=== PATIENT | male | born 1960 | race Hispanic/Latino ===

== ENCOUNTER 2020-09-16 06:30 | Inpatient (IN) | payer MEDICARE ==
[2020-09-11 08:50] LABS: BASOPHILS % (AUTO) 0.8 % (0.0-5.0); EOSINOPHILS % (AUTO) 2.7 % (0.0-8.0); LYMPHOCYTES % (AUTO) 27.1 % (21.0-51.0); MEAN CORPUSCULAR HEMOGLOBIN 33.6 pg (27.0-33.0); MEAN CORPUSCULAR HGB CONC 33.8 g/dL (32.0-36.0); MEAN CORPUSCULAR VOLUME 99.3 fL (79-99); MONOCYTES % (AUTO) 7.8 % (3.0-13.0); NEUTROPHILS % (AUTO) 61.4 % (40.0-77.0); PLATELET COUNT (AUTO) 207 K/uL (130-400); RED BLOOD CELL COUNT(AUTO) 4.53 MIL/uL (4.50-6.20); RED CELL DISTRIBUTION WIDTH 12.6 % (11.0-15.5); WHITE BLOOD COUNT (AUTO) 9.3 K/uL (4.8-10.8)
[2020-09-11 09:07] LABS: CREATININE 1.1 mg/dL (0.5-1.5); POTASSIUM 4.1 mmol/L (3.5-5.1)
[2020-09-11 09:08] LABS: INR 1.01 (0.85-1.15); PROTHROMBIN TIME 10.8 SEC (9.6-11.6)
[2020-09-11 09:09] LABS: PARTIAL THROMBOPLASTIN TIME 28.2 SEC (26.3-35.5)
[2020-09-12 10:57] VITALS: BP 119/70
[2020-09-16] VITALS (21 sets, daily range): BP systolic 92–119; BP diastolic 51–71
[~2020-09-16] VITALS: Ht 167.6 cm; Wt 70.5 kg
[2020-09-16] MEDS ORDERED: BUPIVACAINE/PF 0.25% 30ML VIAL IJ ONE (08:02)
[2020-09-16] MEDS ORDERED: MORPHINE PF 100MG/10ML AMP IV ONE (08:02)
[2020-09-16] MEDS ORDERED: VANCOMYCIN 1G VIAL ONE (08:02)
[2020-09-16] MEDS ORDERED: BUPIVACAINE/PF 0.25% 50ML VIAL IJ ONE (08:02)
[2020-09-16] MEDS ORDERED: TRANEXAMIC ACID 1000MG/10ML ONE (08:02)
[2020-09-16] MEDS ORDERED: THROMBIN-JMI 20000 UNIT KIT TP ONE (08:03)
[2020-09-16] MEDS ORDERED: 0.9%NACL 1000ML 1,000 ML IV ONE (08:19)
[2020-09-16] MEDS ORDERED: KETAMINE 50MG/ML SYRINGE 50 MG/ML DISP.SYRIN IV ONE (08:36)
[2020-09-16] MEDS ORDERED: LIDOCAINE PF 100MG/5ML (2%) SYRINGE 5ML ONE (08:36)
[2020-09-16] MEDS ORDERED: SUCCINYLCHOLINE CHLORIDE 20 MG/ML 10 ML VIAL ONE (08:36)
[2020-09-16] MEDS ORDERED: PROPOFOL 10 MG/ML 20ML VIAL IV ONE (08:36)
[2020-09-16] MEDS ORDERED: MIDAZOLAM HCL 1 MG/ML 2ML VIAL ONE (08:38)
[2020-09-16] MEDS ORDERED: CALDOLOR 800MG+NS 250ML 250 ML IV ONE (09:08)
[2020-09-16] MEDS ORDERED: CEFAZOLIN SODIUM 1 GM VIAL ONE ×2 (09:28→09:29)
[2020-09-16] MEDS ORDERED: TOBRAMYCIN SULFATE 40MG/1ML VIAL ONE (09:31)
[2020-09-16] MEDS ORDERED: GLYCOPYRROLATE 1 MG/5 ML SYRINGE ONE (09:37)
[2020-09-16] MEDS ORDERED: ARTIFICIAL TEARS 3.5 GM OINTMENT ONE (09:45)
[2020-09-16] MEDS ORDERED: ESMOLOL HCL 10 MG/ML 10 ML VIAL ONE (09:46)
[2020-09-16] MEDS ORDERED: ROCURONIUM 10MG/1ML SYR 10 MG/ML ML ONE (09:46)
[2020-09-16] MEDS ORDERED: NEOSTIGMINE 5MG/5ML SYR IV ONE (09:46)
[2020-09-16] MEDS ORDERED: KETOROLAC 30MG VIAL (30MG/ML) ONE (10:16)
[2020-09-16] MEDS ORDERED: FENTANYL CITRATE PF 50 MCG/1 ML 2ML VIAL ONE (10:28)
[2020-09-16] MEDS ORDERED: EPHEDRINE SULFATE 50 MG/ML AMPULE ONE (10:40)
[2020-09-16] MEDS ORDERED: ONDANSETRON 4MG INJ ONE (10:51)
[2020-09-16] MEDS ORDERED: ORPHENADRINE CITRATE 30 MG/ML ML IM SCH (11:00)
[2020-09-16] MEDS ORDERED: ACETAMINOPHEN WITH CODEINE 1 TAB TAB ONE (12:42)
[2020-09-16] MEDS ORDERED: IPRA4AER IH (13:25)
[2020-09-16] MEDS ORDERED: OMEP40CA21 PO (13:25)
[2020-09-16] MEDS ORDERED: TAMS-1 PO (13:25)
[2020-09-16] MEDS ORDERED: ZOLP10TA2 PO (13:25)
[2020-09-16] MEDS ORDERED: DULO60CA64 PO (13:25)
[2020-09-16] MEDS ORDERED: ATOR40TA69 PO (13:25)
[2020-09-16] MEDS ORDERED: PALI3TAB PO (13:25)
[2020-09-16] MEDS ORDERED: LISI2.5T13 PO (13:25)
[2020-09-16] MEDS ORDERED: TRAZ150T79 PO (13:25)
[2020-09-16] MEDS ORDERED: CLON2TAB11 PO (13:25)
[2020-09-16] MEDS ORDERED: METF-444 PO (13:25)
[2020-09-16] MEDS ORDERED: MIRA25TA PO (13:25)
== END 2020-09-16 14:45 | disposition home or self-care (01) | DRG 460 ==
LOC: DAHIP 06:30 → EDSTATUS 12:46
PROVIDERS: ADMIT Neurological Surgery; ATTEND Neurological Surgery
PROC: 4A11X4G Monitoring of Peripheral Nervous Electrical Activity, Intraoperative, External Approach (ICD-10-PCS; 2020-09-16)
PROC: 0SG80JZ Fusion of Left Sacroiliac Joint with Synthetic Substitute, Open Approach (ICD-10-PCS; principal; 2020-09-16 09:27)
DX: M96.1 Postlaminectomy syndrome, not elsewhere classified (principal); M46.1 Sacroiliitis, not elsewhere classified; E78.00 Pure hypercholesterolemia, unspecified; G89.4 Chronic pain syndrome; E11.9 Type 2 diabetes mellitus without complications; Z87.891 Personal history of nicotine dependence; Z98.1 Arthrodesis status; Z90.49 Acquired absence of other specified parts of digestive tract; Z80.9 Family history of malignant neoplasm, unspecified; Z83.3 Family history of diabetes mellitus; Z82.49 Family history of ischemic heart disease and other diseases of the circulatory system; Z20.822 Contact with and (suspected) exposure to COVID-19
CPT/HCPCS: 36415; 71045; 72202; 80048; 82948; 85025; 85610; 85730; 93005; G0378; J0330; J0690; J1040; J1741; J1885; J2001; J2250; J2274; J2405; J2704; J2710; J3010; J3260; J3370; J3490; J7030; U0003

== ENCOUNTER → 2023-03-29 | Outpatient (CLI) | payer OTHER ==
[~2023-03-29] MED LIST: ATOR40TA69 PO; CLON2TAB11 PO; DULO60CA64 PO; IPRA4AER IH; LISI2.5T13 PO; METF-444 PO; MIRA25TA PO; OMEP40CA21 PO; PALI3TAB PO; TAMS-1 PO; TRAZ150T79 PO; ZOLP10TA2 PO
== END | disposition home or self-care (01) ==
LOC: SHCH 12:14
PROVIDERS: ATTEND Internal Medicine Cardiovascular Disease
DX: I07.1 Rheumatic tricuspid insufficiency (principal)
CPT/HCPCS: 93306